=== PATIENT | male | born 1985 | race African-American/Black ===

== ENCOUNTER 2025-01-26 21:35 | Emergency (ER) | payer OTHER ==
[2025-01-26 22:08] LABS: BASOPHILS ABSOLUTE AUTO 0.04 K/uL (0.00-0.20); BASOPHILS PERCENT AUTO 0.4 % (0.0-1.0); EOSINOPHILS ABSOLUTE AUTO 0.09 K/uL (0.00-0.45); EOSINOPHILS PERCENT AUTO 0.8 % (0.0-6.0); IMMATURE GRAN ABSOLUTE AUTO 0.03 K/uL (0.00-0.05); IMMATURE GRAN PERCENT AUTO 0.3 % (0.0-0.4); LYMPHOCYTES ABSOLUTE AUTO 2.71 K/uL (1.00-4.80); LYMPHOCYTES PERCENT AUTO 24.2 % (24.0-44.0); MEAN PLATELET VOLUME 11.3 fL (9.4-12.4); MONOCYTES ABSOLUTE AUTO 0.76 K/uL (0.00-0.80); MONOCYTES PERCENT AUTO 6.8 % (0.0-8.0); NEUTROPHILS ABSOLUTE AUTO 7.57 K/uL (1.80-7.70); NEUTROPHILS PERCENT AUTO 67.5 % (41.0-71.0); NRBC ABSOLUTE 0.00 K/uL (0.00-0.02); NRBC PERCENT 0.0 /100WBC (0.0-0.2); PLATELET COUNT,PLT 223 K/uL (150-400); RED BLOOD CELL COUNT 5.26 M/uL (4.52-5.90); WHITE BLOOD CELL COUNT,WBC 11.20 K/uL (3.9-11.3)
[2025-01-26 22:30] LABS: BLOOD UREA NITROGEN,BUN 19.0 mg/dL (7.0-18.0); CARBON DIOXIDE,CO2 27.5 mmol/L (21.0-32.0); CHLORIDE,CL 106.0 mmol/L (98-107); CREATININE 1.0 mg/dL (0.8-1.3); EST CRCL DRUG DOSING (CG) 118.53 mL/min; GLUCOSE RANDOM 162.0 mg/dL (74-106); POTASSIUM,K 3.5 mmol/L (3.5-5.1); SODIUM,NA 140.0 mmol/L (136-148)
[2025-01-26 22:33] LABS: ESTIMATED GFR 98.0 mL/min (>60)
== END 2025-01-26 23:04 | disposition home or self-care (01) ==
LOC: MW.ED 21:35
DX: I10 Essential (primary) hypertension (principal)
CPT/HCPCS: 36415; 70450; 80048; 85025; 99284; A9270; 99283

== ENCOUNTER 2025-06-10 20:54 | Emergency (ER) | payer OTHER ==
[2025-06-10] MEDS: Ketorolac 30 MG/ML SDV IVPUSH STA (21:29)
[2025-06-10] MEDS: Ondansetron 4 MG/2 ML SDV IVPUSH ONE (21:29)
== END 2025-06-10 22:45 | disposition home or self-care (01) ==
LOC: MW.ED 20:54
DX: G43.909 Migraine, unspecified, not intractable, without status migrainosus (principal); I10 Essential (primary) hypertension
CPT/HCPCS: 96374; 96375; 99283; J1885; J2405; J7030